=== PATIENT | male | born 1960 | race Two or more races ===

== ENCOUNTER 2017-06-26 09:49 | Outpatient (CLI) | payer MEDICARE, MEDICAID ==
[~2017-06-26] VITALS: Ht 180.3 cm; Wt 79.4 kg
[2017-06-26 10:41] VITALS: BP 113/53
[2017-06-26] MEDS ORDERED: depression med (10:52)
--- NOTE | 2017-06-26 11:17 | GI Initial Consult Note ---
Bre Goh Khanh NAnusha 06/26/17 1117: History of Present Illness General Date patient seen: Jun 26, 2017 Time patient seen: 11:10 Referring physician: CARRIE FRIEDMAN Reason for Consultation: HEPATITIS C Present Illness HPI 57 year old male referred by Dr. Friedman for Hepatitis C treatment. Patient with history of cirrhosis presents today with occasional abdominal pain. States he had Interferon or Pegasus treatment in [id number] for 9 months. Denies any unintentional weight loss or changes in dietary habits. Reports weight gain. Has had previous history of EGD/colonoscopy. Home Meds Reported Medications [depression med] No Conflict Check 06/26/17 Med list reviewed/reconciled: Yes Allergies: Coded Allergies: No Known Allergies (Unverified , 06/26/17) Patient History History Provided By: Patient, Medical Record [facility] Narrative Hepatitis C () cirrhosis depression Past Surgical History: cholecystectomy Family History Narrative Father >> Liver disease Mother >> Alzheimer Social History: Reports: smoking - occasional, drug use - Review of Systems All Other Systems: negative except mentioned in HPI Physical Exam Vital Signs Date Time Temp Pulse Resp B/P (MAP) Pulse Ox O2 Delivery O2 Flow Rate FiO2 06/26/17 10:41 97.8 73 16 113/53 95 Sp02 EP Interpretation: reviewed, normal General Appearance: well appearing, no apparent distress, alert Head: normocephalic EENT: PERRL/EOMI, normal ENT inspection Neck: supple Respiratory: normal breath sounds, no respiratory distress Cardiovascular: normal rate Gastrointestinal: normal inspection, non tender, soft, normal bowel sounds, non -distended Rectal: deferred Genitourinary: deferred Musculoskeletal: normal inspection, back normal Neurologic: normal inspection, alert, oriented x3, responsive Psychiatric: normal inspection, judgement/insight normal, memory normal Skin: normal inspection, normal color, no rash, warm/dry, palpation normal, well hydrated Lymphatic: normal inspection, no adenopathy GI: Plan Problems: (1) Cirrhosis (2) Hepatitis C (3) Depression Plan EGD/colonoscopy scheduled 07/04/17. - CLD & (Nulytely/Suprep) prep instructions given and acknowledged by patient. - NPO @ [place] day prior procedure explained. - abdominal U/S to be performed day of procedure. - labs to be drawn day of procedure >> Hep C Genotype, Hep C quant, CBC, CMP, PT /PTT, HBsAg, HBsAb Seen with Dr. Oakes. Thank you for this patient referral. DAVID OAKES 06/26/17 1519: History of Present Illness Present Illness Home Meds Reported Medications [depression med] No Conflict Check 06/26/17 Allergies: Coded Allergies: No Known Allergies (Unverified , 06/26/17) GI: Plan Plan The patient was seen and examined at bedside and all new and available data was reviewed in the patients chart. I agree with the above findings, impression and plan. (Patient seen earlier today. Signature stamp does not reflect patient encounter time.). - [facility] Khanh Dior Jun 26, 2017 11:17 DAVID OAKES Jun 26, 2017 15:19
== END 2017-06-26 10:49 | disposition home or self-care (01) ==
LOC: PAN 09:49
DX: K74.60 Unspecified cirrhosis of liver (principal); B19.20 Unspecified viral hepatitis C without hepatic coma; F32.9 Major depressive disorder, single episode, unspecified; F17.200 Nicotine dependence, unspecified, uncomplicated
CPT/HCPCS: 99201